=== PATIENT | male | born 1945 | race Caucasian/White ===

== ENCOUNTER 2016-05-06 15:58 | Emergency (ER) | payer MEDICARE, OTHER ==
[~2016-05-06] VITALS: Ht 175.3 cm; Wt 119.1 kg
[~2016-05-06 15:58] MED LIST: ALBU18HF INH; AMLO10TA3 PO; ASPI-973 PO; ATOR40TA69 PO; CARB100C8 PO; DOCU250C2 PO; FERROUS GLUCON325 M1 PO; FRSM80T PO; INSU100V7 SUBQ; LEVO175T5 PO; METO100T3 PO; MULT1CAP33 PO; OMEP40CA36 PO; ONDA8TAB10 PO; POLY17PO6 PO; POTA20TA16 PO; PRE20 PO; SENN-133 PO; SERT100T9 PO; SYMINH IH; TERA5CAP6 PO; TIOT18CA3 IH
[2016-05-06 16:05] VITALS: BP 157/45; PULSE 82; RESP 18; O2SAT 98
--- NOTE | 2016-05-06 16:10 | ED.REPORT ---
HPI-General Illness Date of Service May 06, 2016 ED Provider: Guillermo Murray DO This patient is a 70 year old male with a history of GERD, hypertension, and DM brought in by EMS to the ED c/o vomiting onset started 4 hours ago. Pt. admits to diarrhea, abdominal pain, baseline SOB, nausea, diaphoresis, blood when wiping after bowel movements but denies chest pain or fever. Right-sided abdominal pain started 4 days ago. He denies similar symptoms in the past. Nursing Notes Stated Complaint: NAUSEA AND VOMITING Chief Complaint: General Complaint Nursing Notes Reviewed: Yes Allergies: Coded Allergies: ABHISHEK Inhibitors (Verified Allergy, Severe, 11/18/15) Penicillins (Verified Allergy, Severe, 11/18/15) diazepam (Verified Allergy, Severe, 11/18/15) codeine (Verified Allergy, Unknown, 11/18/15) Pt says he swells up when he takes this medication hydrocodone (Verified Allergy, Unknown, 01/06/16) hydrocodone bitartrate (Verified Allergy, Unknown, 11/18/15) oxycodone (Verified Allergy, Unknown, 11/18/15) Scheduled Amlodipine (Amlodipine) 10 Mg Tablet 10 MG PO QPM Aspirin (Aspirin) 81 Mg Tablet 81 MG PO DAILY Atorvastatin Calcium (Atorvastatin Calcium) 40 Mg Tablet 40 MG PO QPM Budesonide/Formoterol 160-4.5 mcg Inh (Symbicort 160-4.5 mcg Inh) 1 Puff Inha 2 PUFF IH BID Carbamazepine (Carbamazepine) 100 Mg Capsule 100 MG PO BID Ferrous Gluconate (Ferrous Gluconate) 325 Mg Tablet 325 MG PO BID Furosemide (Furosemide) 80 Mg Tab 40 MG PO QAM Insulin Glargine (Lantus U100 Insulin Vial) 100 Unit/Ml Vial 43 UNIT SUBQ HS Levothyroxine (Levothyroxine) 175 Mcg Tablet 175 MCG PO QAM Metoprolol Tartrate (Metoprolol Tartrate) 100 Mg Tablet 200 MG PO BID Multivitamin (Multivitamins) 1 Each Capsule 1 EACH PO DAILY Omeprazole (Omeprazole) 40 Mg Capsule.dr 40 MG PO BID Potassium Chloride (Potassium Chloride) 20 Meq Tab.er.prt 20 MEQ PO BID TAKE WITH FOOD Prednisone (PredniSONE) 20 Mg Tablet 20 MG PO TID Sertraline HCl (Sertraline) 100 Mg Tablet 100 MG PO QPM Terazosin (Terazosin) 5 Mg Capsule 5 MG PO HS Tiotropium [place] (Spiriva) 18 Mcg Cap.w.dev 18 MCG IH DAILY Scheduled PRN Albuterol Sulfate (Ventolin HFA Inhaler) 200 Puff/18 Gm Inhaler 2 PUFF INH QID PRN PRN For Wheezing Docusate Sodium (Docusate Sodium) 250 Mg Capsule 250 MG PO BID PRN PRN For Constipation Ondansetron ODT (Ondansetron ODT) 8 Mg Tab.rapdis 8 MG PO QID PRN PRN For Nausea Polyethylene Glycol 3350 (Miralax) 17 Gm Powd.pack 17 GM PO PRN For Constipation Sennosides (Senna) 8.6 Mg Tablet 8.6 MG PO BID PRN PRN For Constipation General Time Seen by MD: 16:09 Chief Complaint Vomiting + possible insulin reaction Hx Obtained From: Patient, EMS Arrived By: Ambulance Sudden in Onset?: No Onset Occurred: 1 - 4 hours ago Symptom Duration: Since onset Location: : Abdomen Quality: Painful Radiation: : Does not radiate Severity: Current: Moderate Severity: Maximum: Moderate Recent Healthcare: No recent hospitalization, Recent doctor visit Similar Sx Previous: Yes Past Medical History Past Medical History Notes: Echocardiogram 04/15/2014: EF 60-65% with hypokinesis and/or dyssynchrony of the distal anteroseptal and apical wall reflecting pacemaker activation, there is left ventricular hypertrophy Past Medical History Coronary artery disease Diabetes type II - on oral meds plus insulin Thyroid cancer Bipolar disorder currently on lithium Seizure disorder Heart attack Hyperlipidemia Morbid obesity COPD with multiple hospitalizations Moderate aortic regurgitation Hypertension Pacemaker placement for high-grade AV block Sleep apnea Iron deficiency anemia Diabetes gastroparesis excellent restless leg syndrome History of small bowel obstruction managed conservatively Hypothyroidism chronic kidney disease history of lithium toxicity BPH with incomplete bladder emptying Reports: Asthma, COPD, Diabetes mellitus, GERD, Hypertension, Mental illness Reports: Depression Past Surgical History Pacemaker Gastric stapling Underlying low back surgery Appendectomy Left carpal tunnel release Right knee surgery Thyroidectomy Smoking History Former Smoker Social History Alcohol Use: Denies alcohol use Drug Use: Denies drug use Other Social History: Frequent ED visitor, Lives alone, Local resident Ambulatory Status Independent Review of Systems Full Review of Systems Constitutional: Denies: Fever Respiratory: Reports: Shortness of breath ([place]) Cardiovascular: Denies: Chest pain GI: Reports: Abdominal pain (R sided), Hematochezia (Blood when wiping after bowel movements), Nausea, Vomiting Skin: Reports Diaphoresis Complete sys rev & neg: except as marked. Physical Exam Vital Signs Vital Signs Date Time Temp Pulse Resp B/P Pulse Ox O2 Delivery O2 Flow Rate FiO2 05/06/16 18:48 36.8 66 20 144/70 99 Room Air 05/06/16 16:05 36.8 82 18 157/45 98 Room Air Initial VS: Reviewed Head / Eyes: Atraumatic, Normocephalic, PERRL ENT: Mucous membranes moist, Conjunctiva normal, No scleral icterus Neck: Supple, Full range of motion Respiratory: Breath sounds normal, Clear to auscultation, No respiratory distress Abdomen / GI: Soft, Non-tender Extremities: Vascular intact, Neuro intact Skin: Warm, Dry, No cyanosis Neurologic: Alert, Oriented, Nonfocal Psychiatric: Mood/affect normal, Behavior normal, Normal thought content General/Constitutional: Awake, Alert, Well developed Cardiovascular: Heart rate NL, Regular rhythm, Heart sounds NL (distant), No murmurs Abdomen: Atraumatic, Soft Right sided abdominal tenderness with involuntary guarding, mild distention Skin: Atraumatic, Color NL, Warm Color / Condition: Positive: Diaphoresis present (Moist) No gross blood externally. No external hemorrhoids. No palpable internal hemorrhoids. No blood on gloved finger. Guaiac-negative. Interpretation & Diagnostics Lab Results Interpretation Result Diagram: 05/06/16 1714 05/06/16 1714 Test 05/06/16 17:14 05/06/16 17:15 White Blood Count 9.9th/mm3 (3.8-10.1) Red Blood Count 4.26mil/mm3 (4.40-5.80) Hemoglobin 12.1g/dL (13.8-17.2) Hematocrit 37.3% (41.0-50.0) Mean Corpuscular Volume 87.6fL (81-100) Mean Corpuscular Hemoglobin 28.4pg (27.0-35.0) Mean Corpuscular Hemoglobin Concent 32.4% (32.0-37.0) Red Cell Distribution Width 13.8% (12.3-15.4) Platelet Count 190bil/L (150-400) Neutrophils (%) (Auto) 62.1% (40-74) Lymphocytes (%) (Auto) 22.5% (14-46) Monocytes (%) (Auto) 10.2% (4-12) Eosinophils (%) (Auto) 4.7% (0-5) Basophils (%) (Auto) 0.2% (0-3) Sodium Level 139mEq/L (134-144) Potassium Level 4.6mEq/L (3.5-5.2) Chloride Level 103mEq/L (97-108) Carbon Dioxide Level 22mmol/L (18-29) Blood Urea Nitrogen 24mg/dL (8-27) Creatinine 1.19mg/dL (0.76-1.27) Estimat Glomerular Filtration Rate 64mL/min (>59) Glucose Level 106mg/dL (60-99) Lactic Acid Level 1.8mmol/L (0.4-2.0) Calcium Level 8.7mg/dL (8.5-10.1) Magnesium Level 2.0mg/dL (1.6-2.6) Total Bilirubin 0.2mg/dL (0.0-1.2) Aspartate Amino Transf (AST/SGOT) 15U/L (0-50) Alanine Aminotransferase (ALT/SGPT) 17U/L (0-44) Alkaline Phosphatase 145U/L (25-160) Troponin T < 0.010ug/L (0.0-0.011) Pro-B-Type Natriuretic Peptide 833.1pg/mL (0-376) Total Protein 7.7g/dL (6.4-8.4) Albumin 4.1g/dL (3.4-5.0) Lipase 74U/L (13-60) Hold Urine Received (Received) ECG Interpretation ECG Interpretation: Paced rhythm with rate of 65 Time: 17:00 Interpreted by: ED physician Normal ECG Interpretation: No acute ischemic changes X-Ray Chest Interpretation Chest Xray Interpretation: IMPRESSION: 1. No definite acute cardiopulmonary disease. Dictated by: Servando Kwong M.D. on 05/06/2016 at 17:52 Approved by: Servando Kwong M.D. on 05/06/2016 at 17:52 View: Portable, AP & lat Interpretation / Wet Read by: Interpret - Radiologist CT Abd / Pelvis Interpretation IMPRESSION: 1. No definite acute intra-abdominal abnormality. Specifically, no evidence of obstructive uropathy or appendicitis. 2. Diverticulosis without acute diverticulitis. Dictated by: Servando Kwong M.D. on 05/06/2016 at 19:16 Re-Eval/Medical Decision Med Decision/Clinical Course 70-year-old presents with a vague report of chills and sweats that started 4 hours prior to arrival. He notes some right-sided abdominal pain but denies chest pain or shortness of breath. He is unable to further give me details as to what is bothering him. He was slightly diaphoretic on arrival. After full evaluation of his heart including labs and EKG, chest x-ray, abdominal CT, and a rectal exam I am unable to identify any causes for his symptoms. He admits to some blood on the toilet paper when wiping prior to coming here but his guaiac is negative and I do not see any evidence of blood. His hemoglobin is normal. He is not having excessive stooling. He is going to go home and return if things worsen. I would like him to follow up with his primary doctor to discuss his symptoms and make sure he is doing better. Patient understands and agrees with this plan Source of Hx: Old records, EMS Time of Eval: 18:30 Re-Evaluation/Progress Note: Patient feeling much better. Agreeable to go home after he gets CT read results. Counseled Regarding: Diagnosis, Lab results, Need for follow-up, When/why to return to ED Discharge & Departure Primary Impression: Right sided abdominal pain Additional Impressions: Diaphoresis Vomiting Vomiting type: unspecified Vomiting Intractability: unspecified Nausea presence: unspecified Qualified Code: R11.10 - Vomiting, unspecified Rectal bleeding Disposition: Home Discharge Condition All VS Reviewed: Yes Condition: Stable Patient Instructions: Acute Abdominal Pain (ED) Additional Instructions: Thank you for entrusting us with your care today. Your emergency room evaluation included an interview, physical exam, laboratory studies, EKG, abdominal CT, and chest x-ray. All of these tests have returned with normal results. I am glad you are feeling better. Please follow-up with your primary care physician next week. Return to the ER if you develop new or worsening symptoms. Referrals: Evette Brownlee MD (PCP) Scribe Attestation Portions of this note were transcribed by Parris Gonzales and Rodriguez Newton. I, Dr. Murray personally performed the history, physical exam and medical decision- making; I reviewed and confirmed the accuracy of the information in the transcribed note. Signed by: Parris Gonzales and Rodriguez Newton, [place], 05/06/2016 and 1835. copies to: Evette Brownlee MD, Gary R DO May 06, 2016 16:10 Ev Gonzales [Parris] May 06, 2016 16:43 RODRIGUEZ NEWTON May 06, 2016 16:51
[2016-05-06] MEDS ORDERED: Ondansetron 2 mg/mL 2 mL Inj IVPUSH ONE (16:30)
[2016-05-06] MEDS ORDERED: Iohexol 300 mg/mL 30 mL Inj PO ONE (16:35)
[2016-05-06 17:23] LABS: BASOPHILS % (AUTO) 0.2 % (0-3); EOSINOPHILS % (AUTO) 4.7 % (0-5); MONOCYTES % (AUTO) 10.2 % (4-12); Mean Corpuscular Hemoglobin 28.4 pg (27.0-35.0); Mean Corpuscular Volume 87.6 fL (81-100); NEUTROPHILS % (AUTO) 62.1 % (40-74); Platelet Count 190 bil/L (150-400)
--- NOTE | 2016-05-06 17:54 | DRSVH ---
PROCEDURE: X-RAY CHEST, TWO VIEWS ([id number]) INDICATIONS: SOB TECHNIQUE: 2 views of the chest were acquired. COMPARISON: [facility], CR, XR CHEST 1VW (PORTABLE), 07/23/2015, 14:27. FINDINGS: Surgical changes and devices: Left chest wall dual-lead pacemaker stable in position. Multiple surgi brayan clips are redemonstrated in the left upper quadrant. Lungs and pleura: No pleural effusions or pneumothorax. There is elevation of the left hemidiaphrag m again noted. No acute consolidation. Mediastinum: Mediastinal contours are unchanged. Heart size is at the upper limits of normal. Bones and chest wall: No suspicious bony abnormalities. Soft tissues appear unremarkable. IMPRESSION: 1. No definite acute cardiopulmonary disease. Dictated by: Servando Kwong M.D. on 05/06/2016 at 17:52 Approved by: Servando Kwong M.D. on 05/06/2016 at 17:52
[2016-05-06 18:01] LABS: TROPONIN T < 0.010 ug/L (0.0-0.011)
[2016-05-06 18:48] VITALS: BP 144/70; PULSE 66; RESP 20; O2SAT 99
--- NOTE | 2016-05-06 19:18 | DRSVH ---
PROCEDURE: CT ABDOMEN AND PELVIS WITH CONTRAST ([id number]) INDICATIONS: R SIDED ABDOMINAL PAIN, DIAPHORESIS TECHNIQUE: After the administration of oral and intravenous contrast, 5 mm thick sections acquired from the diap hragms to the symphysis. 5 mm thick coronal and sagittal reformats were performed. For radiation do se reduction, the following was used: automated exposure control, adjustment of mA and/or kV accordi ng to patient size. COMPARISON: [facility], CT, CT ABD PELVIS WO CON, 08/05/2015, 14:46. FINDINGS: Image quality: Excellent. ABDOMEN: Lung bases: There is minimal dependent atelectasis. Heart size is at the upper limits of normal. T here are pacemaker leads redemonstrated in the right atrium and right ventricle. Solid organs: Liver and spleen are normal in size and enhancement. Gallbladder the gallbladder is s urgically absent. Biliary system is non-dilated. Pancreas enhances normally. No adrenal nodules. Kidneys demonstrate no hydronephrosis. There is mild nonspecific stranding bilaterally. Bilateral r enal cysts are redemonstrated. Peritoneum and bowel: Stomach, small bowel, and colon loops are normal in caliber and wall thickness . No pericecal inflammatory changes to suggest appendicitis. There is colonic diverticulosis withou t acute diverticulitis. No free fluid or air. Nodes and vessels: No retroperitoneal or mesenteric adenopathy. Aorta and inferior vena cava are no rmal in caliber. Miscellaneous: No ventral hernias. PELVIS: Genitourinary: Bladder wall thickness is normal. Miscellaneous: There is a small fat containing left inguinal hernia. No inguinal adenopathy. Bones: No suspicious bony lesions. No vertebral body compression fractures. IMPRESSION: 1. No definite acute intra-abdominal abnormality. Specifically, no evidence of obstructive uropathy or appendicitis. 2. Diverticulosis without acute diverticulitis. Dictated by: Servando Kwong M.D. on 05/06/2016 at 19:16 Approved by: Servando Kwong M.D. on 05/06/2016 at 19:16
[2016-05-06 19:36] VITALS: BP 143/65; PULSE 63; RESP 20; O2SAT 97
== END 2016-05-06 19:36 | disposition home or self-care (01) ==
LOC: EDBD 15:58 → EDUNIT# 15:58 → SED 15:58
DX: R10.9 Unspecified abdominal pain (principal); R61 Generalized hyperhidrosis; R11.10 Vomiting, unspecified; K62.5 Hemorrhage of anus and rectum; I10 Essential (primary) hypertension; E11.43 Type 2 diabetes mellitus with diabetic autonomic (poly)neuropathy; K31.84 Gastroparesis; Z86.79 Personal history of other diseases of the circulatory system; N18.9 Chronic kidney disease, unspecified; Z87.19 Personal history of other diseases of the digestive system; Z85.850 Personal history of malignant neoplasm of thyroid; Z87.09 Personal history of other diseases of the respiratory system; Z87.891 Personal history of nicotine dependence; Z79.82 Long term (current) use of aspirin; Z79.4 Long term (current) use of insulin; Z88.0 Allergy status to penicillin; Z88.5 Allergy status to narcotic agent; Z88.8 Allergy status to other drugs, medicaments and biological substances
CPT/HCPCS: 71020; 74177; 80053; 83605; 83690; 83735; 83880; 84484; 85025; 93005; 96374; 99285; J2405; Q9967